=== PATIENT | female | born 1995 | race Caucasian/White ===

== ENCOUNTER 2017-02-21 13:56 | Emergency (ER) | payer SELFPAY ==
[2017-02-21] MEDS ORDERED: Sodium Chloride 0.9% 1,000 ML IV ONE (14:06)
[2017-02-21] MEDS ORDERED: Ondansetron 4 MG/2 ML SDV IVPUSH ONE ×2 (14:06→14:31)
[2017-02-21] MEDS ORDERED: Morphine 2 MG/ML Syringe IVPUSH ONE (14:07)
--- NOTE | 2017-02-21 14:12 | EDM.PDOC ---
ED HPI GENERAL MEDICAL PROBLEM - General Chief Complaint: Abdominal Pain Stated Complaint: ABD PAIN Time Seen by Provider: 02/21/17 14:09 Source of Information: Reports: Patient History Limitations: Reports: No Limitations - History of Present Illness INITIAL COMMENTS - FREE TEXT/NARRATIVE: HISTORY AND PHYSICAL: History of present illness: Patient is a 21-year-old female who presents to the emergency room today with complaints of nausea, vomiting and diarrhea since 7 AM yesterday. 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 Denies any headache, chest pain, shortness of breath, fever or chills. Denies any dysuria or blood in her stools. Denies any chronic abdominal conditions or previous surgeries. Last menstraul period was 02/02/2017, denies any chance of . Review of systems: As per history of present illness and below otherwise all systems reviewed and negative. Past medical history: As per history of present illness and as reviewed below otherwise noncontributory. Surgical history: As per history of present illness and as reviewed below otherwise noncontributory. Social history: No reported history of drug or alcohol abuse. Family history: As per history of present illness and as reviewed below otherwise noncontributory. Physical exam: Gen.: Well-developed and well-nourished 21-year-old female. Alert and oriented. Appears nontoxic and in no acute distress. HEENT: Atraumatic, normocephalic, pupils reactive, negative for conjunctival pallor or scleral icterus, mucous membranes moist, throat clear, neck supple, nontender, trachea midline. Lungs: Clear to auscultation, breath sounds equal bilaterally, chest nontender. Heart: S1S2, regular rate and rhythm Abdomen: Soft, nondistended, tenderness to the left upper quadrant and right lower quadrant with palpation. Negative for masses or hepatosplenomegaly. Negative for costovertebral tenderness. Pelvis: Stable nontender. Genitourinary: Deferred. Rectal: Deferred. Extremities: Atraumatic, negative for cords or calf pain. Neurovascular unremarkable. Neuro: Awake, alert, oriented. Cranial nerves II through XII unremarkable. Cerebellum unremarkable. Motor and sensory unremarkable throughout. Exam nonfocal. Patient does have a low potassium which I have informed the patient of weed discussed dietary measures to help improve this. She states that her nausea is controlled at this time but she does have a headache. I will give her some Ativan as she does have a ride home. We discussed discharge care, she is agreeable for Phenergan suppository as Zofran IV did not work all for her. Discussed contact and infectious disease measure precautions. Patient voices understanding and is agreeable to plan of care. She denies any further questions at this time. Diagnostics: CBC, CMP, amylase, lipase, UA, urine Therapeutics: Normal saline, Zofran, morphine Ativan, repeat IV fluid bolus Impression: Abdominal pain Viral gastroenteritis Hypokalemia Plan: 1. Phenergan suppositories have been prescribed for you, as the Zofran tablets did not seem to work. This medication may make you drowsy soon do not take it while needing to be functioning at work or driving. 2. Supportive care measures such as Tylenol and/or ibuprofen as needed for body aches and fever control. Drinking small frequent sips of fluids to prevent dehydration. A bland diet that is advanced as tolerated. Your potassium was low today please add more foods that are high in potassium once he starts to feel better. 3. If you're not improving in the next couple days please follow-up with your primary caregiver. Return to the ED as needed and as discussed. Definitive disposition and diagnosis as appropriate pending reevaluation and review of above. Duration: Day(s): Location: Reports: Abdomen Associated Symptoms: Reports: Loss of Appetite, Nausea/Vomiting. Denies: Confusion, Chest Pain, Cough, cough w sputum, Diaphoresis, Fever/Chills, Headaches, Malaise, Rash, Seizure, Shortness of Breath, Weakness abdomen Pain Score (Numeric/FACES): 10 - Related Data Allergies Allergy/AdvReac Type Severity Reaction Status Date / Time No Known Allergies Allergy Verified 02/21/17 13:57 Home Meds: Home Meds . [No Known Home Meds] 02/21/17 [History] Past Medical History - Past Health History Medical/Surgical History: Denies Medical/Surgical History Social & Family History - Family History Family Medical History: Noncontributory - Tobacco Use Smoking Status *Q: Never Smoker - Recreational Drug Use Recreational Drug Use: No ED ROS GENERAL - Review of Systems Review Of Systems: ROS reveals no pertinent complaints other than HPI. ED EXAM, GI/ABD - Physical Exam Exam: See Below (See dictation) Course - Vital Signs Last Recorded V/S: Last Vital Signs Temp 98 F 02/21/17 13:56 Pulse 97 02/21/17 16:50 Resp 18 02/21/17 16:50 BP 114/72 02/21/17 16:50 Pulse Ox 100 02/21/17 16:50 - Orders/Labs/Meds Labs: Laboratory Tests 02/21/17 02/21/17 02/21/17 Range/Units 14:12 14:12 14:12 WBC 7.75 (4.0-11.0) K/uL RBC 5.62 (4.30-5.90) M/uL Hgb 16.0 (12.0-16.0) g/dL Hct 46.7 H (36.0-46.0) % MCV 83.1 (80.0-98.0) fL MCH 28.5 (27.0-32.0) pg MCHC 34.3 (31.0-37.0) g/dL RDW Std Deviation 39.0 (28.0-62.0) fl RDW Coeff of Wilfredo 13 (11.0-15.0) % Plt Count 277 (150-400) K/uL MPV 9.90 (7.40-12.00) fL Neut % (Auto) 85.2 H (48.0-80.0) % Lymph % (Auto) 9.2 L (16.0-40.0) % Armstrong % (Auto) 5.5 (0.0-15.0) % Eos % (Auto) 0.0 (0.0-7.0) % Baso % (Auto) 0.1 (0.0-1.5) % Neut # (Auto) 6.6 H (1.4-5.7) K/uL Lymph # (Auto) 0.7 (0.6-2.4) K/uL Armstrong # (Auto) 0.4 (0.0-0.8) K/uL Eos # (Auto) 0.0 (0.0-0.7) K/uL Baso # (Auto) 0.0 (0.0-0.1) K/uL Nucleated RBC % 0.0 /100WBC Nucleated RBCs # 0 K/uL Sodium 137 (136-146) mmol/L Potassium 3.0 L (3.5-5.1) mmol/L Chloride 102 (98-110) mmol/L Carbon Dioxide 20 L (21-31) mmol/L BUN 15 (6.0-23.0) mg/dL Creatinine 1.0 (0.6-1.5) mg/dL Est Cr Clr Drug Dosing TNP Estimated GFR (MDRD) > 60.0 ml/min Glucose 110 (60-110) mg/dL Calcium 9.2 (8.8-10.8) mg/dL Total Bilirubin 0.5 (0.1-1.5) mg/dL AST 26 (5-40) IU/L ALT 19 (8-54) IU/L Alkaline Phosphatase 87 (40-150) Total Protein 8.6 H (6.0-8.0) g/dL Albumin 4.4 (3.5-5.0) g/dL Globulin 4.2 H (2.0-3.5) g/dL Albumin/Globulin Ratio 1.1 L (1.3-2.8) Amylase 50 (10-90) U/L Lipase 16 (7-80) U/L HCG, Qual NEGATIVE (NEG) Meds: Medications Discontinued Medications Generic Name Dose Route Start Last Admin Trade Name Freq PRN Reason Stop Dose Admin Sodium Chloride 1,000 mls @ 999 mls/hr 02/21/17 14:06 02/21/17 14:17 Normal Saline IV 02/21/17 15:06 999 mls/hr STAT ONE Administration Sodium Chloride 500 mls @ 999 mls/hr 02/21/17 16:15 02/21/17 16:12 Normal Saline IV 999 mls/hr STAT HEMANTH Administration Iopamidol 100 ml 02/21/17 14:23 02/21/17 15:04 Isovue Multipack-370 (76%) IVPUSH 02/21/17 14:24 100 ml ONETIME STA Administration Lorazepam 1 mg 02/21/17 16:05 02/21/17 16:12 Ativan IVPUSH 02/21/17 16:06 1 mg ONETIME ONE Administration Morphine Sulfate 2 mg 02/21/17 14:07 02/21/17 14:16 Morphine IVPUSH 02/21/17 14:08 2 mg ONETIME ONE Administration Ondansetron HCl 4 mg 02/21/17 14:06 02/21/17 14:16 Zofran IVPUSH 02/21/17 14:07 4 mg ONETIME ONE Administration Ondansetron HCl 4 mg 02/21/17 14:31 02/21/17 14:34 Zofran IVPUSH 02/21/17 14:32 4 mg ONETIME ONE Administration Potassium Chloride 10 meq 02/21/17 16:05 02/21/17 16:14 Klor-Con 10 PO 02/21/17 16:06 10 meq ONETIME ONE Administration Promethazine HCl 12.5 mg 02/21/17 15:03 02/21/17 15:09 Phenergan IM 02/21/17 15:04 12.5 mg ONETIME ONE Administration Departure - Departure Time of Disposition: 22:30 Disposition: Home, Self-Care 01 Clinical Impression: Hypokalemia, Gastroenteritis Abdominal pain Qualifiers: Abdominal location: generalized Qualified Code(s): R10.84 - Generalized abdominal pain Diarrhea Qualifiers: Diarrhea type: unspecified type Qualified Code(s): R19.7 - Diarrhea, unspecified - Discharge Information Instructions: Abdominal Pain, Adult, Viral Gastroenteritis, Adult, [id number] , Hypokalemia Referrals: PCP,None [Primary Care Provider] - Forms: ED Department Discharge Additional Instructions: My general discharge The following information is given to patients seen in the emergency department who are being discharged to home. This information is to outline your options for follow-up care. We provide all patients seen in our emergency department with a follow-up referral. The need for follow-up, as well as the timing and circumstances, are variable depending upon the specifics of your emergency department visit. If you don't have a primary care physician on staff, we will provide you with a referral. We always advise you to contact your personal physician following an emergency department visit to inform them of the circumstance of the visit and for follow-up with them and/or the need for any referrals to a consulting specialist. The emergency department will also refer you to a specialist when appropriate. This referral assures that you have the opportunity for follow-up care with a specialist. All of these measure are taken in an effort to provide you with optimal care, which includes your follow-up. Under all circumstances we always encourage you to contact your private physician who remains a resource for coordinating your care. When calling for follow-up care, please make the office aware that this follow-up is from your recent emergency room visit. If for any reason you are refused follow-up, please contact the [facility] Emergency Department at and asked to speak to the emergency department charge nurse. [facility] [address] [place] [id number] 1. Phenergan suppositories have been prescribed for you, as the Zofran tablets did not seem to work. This medication may make you drowsy soon do not take it while needing to be functioning at work or driving. 2. Supportive care measures such as Tylenol and/or ibuprofen as needed for body aches and fever control. Drinking small frequent sips of fluids to prevent dehydration. A bland diet that is advanced as tolerated. Your potassium was low today please add more foods that are high in potassium once he starts to feel better. 3. If you're not improving in the next couple days please follow-up with your primary caregiver. Return to the ED as needed and as discussed.
[2017-02-21] MEDS ORDERED: Iopamidol 755 MG/ML 500 ML Multipack Bottle IVPUSH STA (14:23)
[2017-02-21 14:48] LABS: CHLORIDE,CL 102 mmol/L (98-110); SODIUM,NA 137 mmol/L (136-146)
[2017-02-21] MEDS ORDERED: Promethazine 25 MG/ML SDV IM ONE (15:03)
--- NOTE | 2017-02-21 15:55 | CT ---
CT of the abdomen and pelvis with contrast. HISTORY: Pain TECHNIQUE: Axial CT images were obtained of the abdomen and pelvis following administration of 50 mL of Isovue-370 without complication. Coronal and sagittal reconstructions obtained. FINDINGS: The lung bases are clear without focal consolidation. There is focal fatty infiltration of the falciform ligament. Spleen, adrenal glands, pancreas appear normal. The gallbladder is normal. There is no bulky retroperitoneal lymphadenopathy or abdominal asc ites. The kidneys enhance and function symmetrically without evidence of obstructive uropathy. The large and small bowel are normal in caliber without evidence of obstruction. No focal pericolonic inflammation or stranding. The appendix is normal in size without notable periappendiceal stranding. Urinary bladder is normal. No bulky pelvic lymphadenopathy or free pelvic fluid. No suspicious osseous abnormalities. IMPRESSION: 1. No acute findings demonstrated within the abdomen or pelvis.
[2017-02-21] MEDS ORDERED: LORazepam 2 MG/ML SDV IVPUSH ONE (16:05)
[2017-02-21] MEDS ORDERED: Potassium Chloride 10 MEQ Tab.ER PO ONE (16:05)
[2017-02-21] MEDS ORDERED: Sodium Chloride 0.9% 500 ML IV SCH (16:15)
[2017-02-21 17:30] VITALS: BP 114/72
== END 2017-02-21 16:50 | disposition home or self-care (01) ==
LOC: MW.ED 13:56
DX: A08.4 Viral intestinal infection, unspecified (principal); E87.6 Hypokalemia
CPT/HCPCS: 36415; 74177; 80053; 82150; 83690; 84703; 85025; 96361; 96372; 96374; 96375; 99284; A9270; J2060; J2270; J2405; J2550; J7040; Q9967; 99283